=== PATIENT | female | born 1965 | race Caucasian/White ===

== ENCOUNTER 2017-04-24 00:54 | Emergency (ER) | payer OTHER ==
[~2017-04-24] VITALS: Ht 170.2 cm; Wt 84.0 kg
[2017-04-24 01:06] VITALS: BP 112/66; PULSE 73; RESP 14; TEMP 97.7; O2SAT 95
[2017-04-24] MEDS ORDERED: CYCL1TAB29 PO (01:18)
[2017-04-24] MEDS ORDERED: TYLE325T PO (01:18)
[2017-04-24] MEDS ORDERED: LAMI200T PO (01:18)
[2017-04-24] MEDS ORDERED: HYDR-3533 PO (01:23)
[2017-04-24] MEDS ORDERED: PENI500T PO (01:23)
--- NOTE | 2017-04-24 01:27 | PD ---
HPI Chief Complaint: Oral / Dental Pain or Problem Time Seen by Provider: 01:21 Travel History International Travel<30 days: No Contact w/Intl Traveler<30days: No Traveled to known affect area: No History of Present Illness HPI 51-year-old female presents to the emergency department by private transportation for complaint of dental pain. Patient states [place] and on Monday started noticing some soreness of the jaw and then today noticed some swelling to the left sided maxillary dentition and gingiva. No fever no chills no nausea no vomiting no cough no congestion no sore throat no earache. Patient is not diabetic. Patient has taken Tylenol 2 different doses for pain relief. Due to swelling decided to come to the emergency room for evaluation of antibiotic. Patient denies other concerns or complaints. Pain is 7/10 in intensity. PFSH Past Medical History Narrative Medical Bipolar disorder; hysterectomy, breast augmentation; no tobacco use; nursing notes reviewed ?: Not Past Surgical History Hysterectomy: Yes Social History Tobacco Use: No Allergies-Medications (Allergen,Severity, Reaction): Coded Allergies: No Known Allergies (Unverified , 04/24/17) Reported Meds & Prescriptions Reported Meds & Active Scripts Active Reported Flexeril (Cyclobenzaprine HCl) 10 Mg Tab 10 Mg PO TID Tylenol (Acetaminophen) 325 Mg Tab 975 Mg PO Q6H PRN Lamictal (Lamotrigine) 200 Mg Tab 200 Mg PO DAILY Review of Systems Except as stated in HPI: all other systems reviewed are Neg General / Constitutional: No: Fever, Chills HENT: Positive: Dental Difficulties, No: Sore Throat, Congestion, Neck Pain Cardiovascular: No: Chest Pain or Discomfort Gastrointestinal: No: Nausea, Vomiting Genitourinary: No: Flank Pain Musculoskeletal: No: Pain Skin: No Rash Neurologic: No: Weakness Hematologic/Lymphatic: No: Lymph Node Enlargement Physical Exam Narrative GENERAL: Well-developed well-nourished female in no acute distress no respiratory distress SKIN: Warm and dry. HEAD: Normocephalic. EYES: No scleral icterus. No injection or drainage. ENT: Mucous membranes moist airway is patent gingivitis changes and dental caries noted soft tissue swelling of the left maxilla dentition without fluctuance at the #15 #14 dentition. NECK: Supple, trachea midline. No JVD or lymphadenopathy. CARDIOVASCULAR: Regular rate and rhythm without murmurs, gallops, or rubs. RESPIRATORY: Breath sounds equal bilaterally. No accessory muscle use. GASTROINTESTINAL: Abdomen soft, non-tender, nondistended. MUSCULOSKELETAL: No cyanosis, or edema. BACK: Nontender without obvious deformity. No CVA tenderness. Data Data Last Documented VS Vital Signs Date Time Temp Pulse Resp B/P Pulse Ox O2 Delivery O2 Flow Rate FiO2 04/24/17 01:15 04/24/17 01:06 97.7 73 14 95 [facility] Medical Decision Making Medical Screen Exam Complete: Yes Emergency Medical Condition: Yes Medical Record Reviewed: Yes Differential Diagnosis Dentalgia, dental abscess, dental fracture, gingivitis, periodontal disease Narrative Course Patient given first dose of antibiotic Penicillin VK 500 mg by mouth and stable for outpatient management and follow-up with dentist. Diagnosis Primary Impression: Dental abscess Referrals: Dentist call for appointment Patient Instructions: General Instructions Med/Other Pt SpecificInfo: Prescription(s) given Scripts Hydrocodone-Acetaminophen (Lortab)5-325 Mg Tab1 Tab PO Q6H PRN (PAIN) #7 TAB Ref 0 Prov:Esther Seo MD 04/24/17 Penicillin V Potassium 500 Mg [id number] Mg PO Q6H 7 Days Ref 0 Prov:Esther Seo MD 04/24/17 Disposition: 01 DISCHARGE HOME Condition: Stable Esther Seo MD Apr 24, 2017 01:27
[2017-04-24] MEDS ORDERED: PENICILLIN V POTASSIUM 500 MG TAB PO ONE (01:30)
== END 2017-04-24 01:59 | disposition home or self-care (01) ==
LOC: PHED 00:54
DX: K04.7 Periapical abscess without sinus (principal)
CPT/HCPCS: 99284